=== PATIENT | male | born 1990 | race Caucasian/White ===

== ENCOUNTER 2017-07-18 11:08 | Emergency (ER) | payer SELFPAY ==
[2017-07-18 11:10] VITALS: BP 132/82
[2017-07-18] MEDS ORDERED: DIPHTH,PERTUSS(ACELL),TET TOX 0.5 ML DISP.SYRIN. VAX IM ONE (11:30)
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
== END 2017-07-18 12:10 | disposition home or self-care (01) ==
LOC: ER 11:08
DX: S51.812A Laceration without foreign body of left forearm, initial encounter (principal); X78.1XXA Intentional self-harm by knife, initial encounter; Y93.89 Activity, other specified; Y99.8 Other external cause status; Y92.89 Other specified places as the place of occurrence of the external cause
CPT/HCPCS: 12002; 99283-25